=== PATIENT | male | born 1940 | race Caucasian/White ===

== ENCOUNTER 2020-10-19 07:48 | Emergency (ER) | payer OTHER, MEDICARE, SELFPAY ==
--- NOTE | ~2020-10-19 | US_ITS ---
EXAMINATION: US PELVIS LIMITED (BLADDER) CLINICAL INFORMATION: Check suprapubic catheter balloon is inflated.. COMPARISON: CT of February 28, 2019 TECHNIQUE: Real-time imaging of the bladder. FINDINGS: BLADDER: The suprapubic catheter retention balloon is not inflated. US/US bladder IMPRESSION: Suprapubic urinary bladder catheter balloon not inflated..
[2020-10-19 07:56] VITALS: BP 132/59; BP 152/75; PULSE 62; PULSE 64; RESP 18; TEMP 36.9; O2SAT 95; BMI 31.1
--- NOTE | 2020-10-19 08:28 | PC.NURSE ---
PT'S BRIEF SATURATED IN URINE. MD ATTEMPT TO REMOVE CATHETER, BALLOON WILL NOT DEFLATE. UNABLE TO FLUSH CATHETER.
--- NOTE | 2020-10-19 09:19 | ED.GENADULT ---
HPI - General Adult General Chief complaint: General Medical Stated complaint: KAHN BLOCKED PER SNF Time Seen by Provider: 10/19/20 08:40 Source: EMS Mode of arrival: EMS Limitations: other (Patient is very hard of hearing) History of Present Illness HPI narrative: 80-year-old male sent in from his senior living facility for evaluation malfunctioning suprapubic catheter. The report from the paramedics was that the Kahn catheter was not working, staff was unable to flush the catheter. Unknown when the Kahn catheter was last changed or placed. ED nursing staff was unable to flush the catheter. I attempted to drain the balloon in order to change the suprapubic catheter however I was unable to get any fluid out of the balloon. I cut the valve off the Kahn catheter and no fluid was expressed from the tube. The catheter easily slides in and out however there does appear to be in inflated balloon since I am unable to pull it out despite having cut off the valve. Related Data Allergies Allergy/AdvReac Type Severity Reaction Status Date / Time No Known Allergies Allergy Unverified 05/22/20 16:27 [No Known Allergies*] Review of Systems Review of Systems: Yes Other (Unable to obtain secondary to the patient's difficulty with hearing) PMFSH Past Medical History Medical History Achalasia of cardia Aspiration into airway Chronic GERD Cochlear implant status Cystitis Dysphagia Failure to thrive Multiple sclerosis Neuromuscular dysfunction of bladder Paraplegia Suprapubic catheter Social History Social History Advance Directives: Yes Advance Directives on File: Yes Advance Directives Date on File: 10/19/20 Physical Exam Vital Signs: Vital Signs: Last Vital Signs Temp 98.5 F 10/19/20 07:56 Pulse 64 10/19/20 07:56 Resp 18 10/19/20 07:56 BP 132/59 L 10/19/20 07:56 Pulse Ox 95 10/19/20 07:56 Body Mass Index 31.1 Const: General: cooperative and no acute distress HENMT: Head: Yes normal to inspection GI: Inspection: Yes normal to inspection and No distended Palpation (GI): Soft to palpation, nontender, no guarding and Other GI palpation findings present (Super pubic catheter in place, unable to remove despite cutting the valve) Psych: Appearance: grossly normal Course Course Course Narrative: The patient has a nonfunctioning suprapubic Kahn catheter. I was unable to drain fluid out of the balloon and despite cutting the valve, the balloon appears to still be inflated. I did discuss this with the covering urologist, Dr. Beck Mg. He recommended obtaining an ultrasound to see if the balloon is still inflated and if it is not inflated to numb the patient's stoma up with lidocaine tried to use some forced to remove the catheter. If the balloon is inflated, he will come to the emergency department and to deflate the balloon and change the Kahn catheter. 1034: I did discuss patient's presentation with the urologist, he recommended getting an ultrasound to make sure that the balloon was still inflated. Ultrasound did not see a balloon suggesting that was deflated, urology recommended that given the patient infiltrating the stoma site with lidocaine and trying to remove the suprapubic catheter. This was done and I was able to remove the catheter and easily reinserted a 12 Jamaican Kahn with a 5 cc balloon. Patient is draining urine from this new suprapubic catheter therefore he will be discharged back to his facility. Procedures Procedure Narrative Procedure Narrative: Suprapubic catheter change: The suprapubic catheter stoma was cleaned with Betadine, I injected 1% lidocaine with epinephrine around the stoma, approximately 10 mL was used. Using gentle pressure I was able to dislodge the suprapubic catheter and replace it with a 12 Jamaican. The balloon was inflated with 5 cc of fluid. There was good drainage from the Kahn catheter. Discharge Plan Discharge Clinical Impression: Blocked suprapubic catheter Patient Disposition: Home, Self-Care Additional Instructions: Your suprapubic catheter was not working. I changed the catheter in the emergency department and replaced it with a 12 Jamaican Kahn catheter with a 5 cc balloon. Follow-up with your doctor in 2 days. Please return to the emergency department if your symptoms get worse or if you develop any symptoms that are concerning to you.
[2020-10-19] MEDS: Lidocaine HCl 1%/Epi 1:100,000 20 ML VIAL INFILTRATI (09:58)
[2020-10-19 11:16] VITALS: BP 129/60; PULSE 63; RESP 16; O2SAT 95
--- NOTE | 2020-10-19 11:21 | PC.NURSE ---
CALL TO [facility], NO ANSWER.
[2020-10-19 11:31] LABS: Glucose Urine UA NEG (NEG); Leukocyte Esterase Urine 3+ (NEG); Nitrite Urine POS (NEG); PH 8.5 (5.0-8.0); Specific Gravity - Urine 1.015 (1.005-1.025); UACC Culture Trigger YES; Urine Blood 2+ (NEG); Urine Ketones NEG (NEG)
[2020-10-19 11:33] LABS: Appearance Urine CLOUDY; Color Urine YELLOW; Urine Protein 2+ MG/DL (NEG-TRACE)
[2020-10-19 11:39] LABS: Amorphous Sediment Urine 2+ /LPF; Bacteria Urine 3+ /LPF; Squamous Epithelial Cell Urine TRACE /LPF
== END 2020-10-19 13:20 | disposition home or self-care (01) ==
PROVIDERS: Emergency Provider Emergency Medicine Emergency Medical Services; PCP Family Medicine
DX: T83.098A Other mechanical complication of other urinary catheter, initial encounter (principal); N99.528 Other complication of incontinent external stoma of urinary tract; Y73.8 Miscellaneous gastroenterology and urology devices associated with adverse incidents, not elsewhere classified; Y92.9 Unspecified place or not applicable; Z79.899 Other long term (current) drug therapy
CPT/HCPCS: 51102; 76857; 81001; 81003; 87086; 87088; 87186; 99284

== ENCOUNTER 2020-11-01 10:18 | Emergency (ER) | payer OTHER, MEDICARE, SELFPAY ==
[2020-11-01 10:30] VITALS: BP 136/63; BP 138/70; PULSE 70; PULSE 74; RESP 19; TEMP 36.6; O2SAT 96; O2SAT 97; BMI 33.4
--- NOTE | 2020-11-01 11:44 | ED.MALEGU ---
HPI - Male Genitourinary General Chief complaint: Urogenital-Male Stated complaint: F/C ISSUE FROM SNF Time Seen by Provider: 11/01/20 11:00 Source: EMS Mode of arrival: EMS History of Present Illness HPI Narrative: 80-year-old male With a past medical history of achalasia,, Fadi GERD, cochlear implants, cystitis, dysphagia, failure to thrive, MS, neuromuscular dysfunction of the bladder, suprapubic catheter, paraplegia, urinary retention, BIBA from SNF for noted decreased urine output this morning from suprapubic catheter with inability to remove cath this morning to check for blockage. Patient was seen and treated in the ED on 10/19/2020 for similar symptoms and had Babb catheter changed in the ED. Related Data Previous Rx's Medication Instructions Recorded cefuroxime axetil 250 mg PO BID 7 Days #14 tab 11/01/20 Allergies Allergy/AdvReac Type Severity Reaction Status Date / Time No Known Allergies Allergy Verified 11/01/20 10:34 [No Known Allergies*] Review of Systems Review of Systems: Gastrointestinal: No Nausea, No Vomiting, No Abdominal pain Genitourinary: +blocked catheter History limited due to patients difficulty hearing PMFSH Past Medical History Attestation statement: The following information was validated with the patient. Medical History (Updated 11/01/20 @ 12:46 by ARLENE Liang) Achalasia of cardia Aspiration into airway Chronic GERD Cochlear implant status Cystitis Dysphagia Failure to thrive Multiple sclerosis Neuromuscular dysfunction of bladder Paraplegia Suprapubic catheter Urine retention Social History Social History Advance Directives: Yes Advance Directives on File: Yes Advance Directives Date on File: 10/19/20 Physical Exam Vital Signs: Vital Signs: Last Vital Signs Temp 97.6 F 11/01/20 12:57 Pulse 62 11/01/20 12:57 Resp 18 11/01/20 12:57 BP 137/67 11/01/20 12:57 Pulse Ox 97 11/01/20 12:57 Body Mass Index 33.4 Const: General: cooperative, healthy appearing, comfortable and no acute distress Limitations: no limitations HENMT: Head: Yes normal to inspection Ears: hearing grossly normal bilaterally General nose exam: Normal external nose present Face and sinus: Yes normal facial exam Eyes: General: appearance normal, both eyes and all related structures EOM: EOMs intact bilaterally Neck: Neck: Yes normal visual inspection and Yes no meningeal signs Resp: Effort & Inspection: normal respiratory effort GI: Other: Suprapubic catheter in place. Balloon deflated and removed. New 14 Japanese Babb catheter replaced and balloon inflated with 5 cc of fluid. Good drainage obtained from Babb catheter Inspection: Yes normal to inspection Palpation (GI): Soft to palpation, nontender, no guarding and not rigid Skin: Rashes: no rashes Neuro: General: no meningeal signs Extrem: General: Yes normal to inspection Psych: Appearance: grossly normal and well kempt Course Course Course Narrative: -UA chronically infected, will treat based on prior culture results MDM - Male Genitourinary MDM Narrative Medical decision making narrative: 80-year-old male With a past medical history of achalasia,, Fadi GERD, cochlear implants, cystitis, dysphagia, failure to thrive, MS, neuromuscular dysfunction of the bladder, suprapubic catheter, paraplegia, urinary retention, BIBA from SNF for decreased UOP from suprapubic catheter noted this morning. On exam VSS, NAD/well-appearing, physical exam as above. Suprpapubic catheter replaced w/ Japanese Babb with good urine return. Plan: Suprapubic catheter replaced, send urine sample from clean catheter Urine culture from 10/19 grew Proteus Mirabilis > will DC with Ceftin which is sensitive Medical Records Attestation: I reviewed the patient's medical records. Lab Data Attestation: I reviewed the patient's lab results. Labs: Lab Results 11/01/20 Range/Units 12:47 Urine Color YELLOW Urine Appearance CLOUDY Urine pH 8.0 (5.0-8.0) Ur Specific [place] 1.020 (1.005-1.025) Urine Protein 2+ H (NEG-TRACE) MG/DL Urine Glucose (UA) NEG (NEG) MG/DL Urine Ketones NEG (NEG) MG/DL Urine Blood 2+ H (NEG) Urine Nitrite POS H (NEG) Ur Leukocyte Esterase 3+ H (NEG) Urine RBC 15-29 H (0) /HPF Urine WBC TNTC H (0-4) /HPF Ur Squamous Epith Cells NONE /LPF Urine Bacteria 2+ /LPF Discharge Plan Discharge Clinical Impression: Blocked suprapubic catheter, Acute UTI Patient Disposition: [facility] Instructions: Catheter-associated Urinary Tract Infection (ED) Additional Instructions: your catheter was replaced today in the ED You were noted to have urinary tract infection, Ceftin is antibiotic, take as prescribed Follow-up your urologist If your Babb becomes clogged, is not draining, have blood, you have abdominal pain, nausea, vomiting or fever return to the ED Prescriptions: New cefuroxime axetil 250 mg tablet 250 mg PO BID 7 Days Qty: 14 RF: 0 Referrals: Physician,Unknown [Primary Care Provider] - 2 days Gibson Henry MD [Physician] - 2 days
[2020-11-01 12:56] LABS: Glucose Urine UA NEG (NEG); Leukocyte Esterase Urine 3+ (NEG); Nitrite Urine POS (NEG); UACC Culture Trigger YES; Urine Blood 2+ (NEG); Urine Ketones NEG (NEG); Urine Protein 2+ MG/DL (NEG-TRACE)
--- NOTE | 2020-11-01 12:56 | PC.NURSE ---
new suprapubic cath has been inserted by providers. cloudy urine with sediment only 5-ml present in thakkar bag. pt states he has no complaints at this time but is hungry. this rn to bring food. pt awaits ua results.
[2020-11-01 12:57] VITALS: BP 137/67; PULSE 62; RESP 18; TEMP 36.4; O2SAT 97
[2020-11-01 12:59] LABS: Appearance Urine CLOUDY; Color Urine YELLOW
[2020-11-01 13:08] LABS: Bacteria Urine 2+ /LPF; WBC Urine TNTC /HPF (0-4)
[2020-11-01 15:30] VITALS: BP 168/69; PULSE 70; RESP 16; TEMP 36.4; O2SAT 99
--- NOTE | 2020-11-01 15:50 | PC.NURSE ---
rn to rn hilario oliver at [facility].
== END 2020-11-01 16:15 | disposition skilled nursing facility (03) ==
PROVIDERS: Physician Assistant; Emergency Provider Emergency Medicine Emergency Medical Services
DX: T83.098A Other mechanical complication of other urinary catheter, initial encounter (principal); T83.511A Infection and inflammatory reaction due to indwelling urethral catheter, initial encounter
CPT/HCPCS: 51702; 81001; 81003; 87086; 87088; 87186; 99284

== ENCOUNTER → 2020-11-06 08:08 | Outpatient (BNVA) | payer MEDICARE, SELFPAY | PROVIDERS: Visit Provider Internal Medicine Endocrinology, Diabetes & Metabolism | DX: E11.65 Type 2 diabetes mellitus with hyperglycemia (principal); E11.42 Type 2 diabetes mellitus with diabetic polyneuropathy; E11.21 Type 2 diabetes mellitus with diabetic nephropathy; B35.3 Tinea pedis | CPT/HCPCS: 82947; 99202 ==

== ENCOUNTER 2021-01-01 19:46 | Emergency (ER) | payer OTHER, MEDICARE, SELFPAY ==
[2021-01-01 20:10] VITALS: BP 148/70; BP 175/76; PULSE 66; PULSE 78; RESP 16; TEMP 36.8; O2SAT 96; O2SAT 97; BMI 26.3
--- NOTE | 2021-01-01 20:14 | PC.NURSE ---
ARRIVES FROM [facility], [place]. SUPRAPUBIC TUBING NOT IN PLACE UPON ARRIVAL. INSERTION SITE DOES NOT APPEAR INFECTED
[2021-01-01 22:20] LABS: Glucose Urine UA NEG (NEG); Leukocyte Esterase Urine 1+ (NEG); Nitrite Urine POS (NEG); PH 7.5 (5.0-8.0); UACC Culture Trigger YES; Urine Blood 2+ (NEG); Urine Ketones NEG (NEG); Urine Protein NEG (NEG-TRACE)
--- NOTE | 2021-01-01 22:22 | ED.GENADULT ---
HPI - General Adult General Chief complaint: General Medical Stated complaint: G TUB PROBLEMS Time Seen by Provider: 01/01/21 22:05 Source: RN notes reviewed Mode of arrival: EMS Limitations: other (CVA) History of Present Illness HPI narrative: [facility] suprapubic catheter dislodgement which he had for last 2 years, no fever no chills no abdominal pain Related Data Home Medications Medication Instructions Recorded Confirmed acetaminophen 500 mg tablet 200 mg PO Q6H PRN tab 11/06/20 11/06/20 amlodipine 5 mg tablet 5 mg PO DAILY 11/06/20 11/06/20 aspirin 81 mg tablet,delayed 81 mg PO DAILY 11/06/20 11/06/20 release atorvastatin 40 mg tablet 40 mg PO BEDTIME 11/06/20 11/06/20 cholecalciferol (vitamin D3) 25 25 mcg PO DAILY 11/06/20 11/06/20 mcg (1,000 unit) capsule docusate sodium 100 mg capsule 100 mg PO DAILY 11/06/20 11/06/20 fluticasone propionate 50 1 spray INTRANASAL BID 11/06/20 11/06/20 mcg/actuation nasal spray,suspension galantamine 8 mg tablet 8 mg PO BID 11/06/20 11/06/20 insulin detemir U-100 100 unit/mL 20 unit SUBCUT BEDTIME 11/06/20 11/06/20 (3 mL) subcutaneous pen insulin lispro 100 unit/mL See Rx Instructions SUBCUT 11/06/20 11/06/20 subcutaneous solution USEASDIRECTD lactulose 10 gram/15 mL oral 10 g PO DAILY 11/06/20 11/06/20 solution memantine 10 mg tablet 10 mg PO BID 11/06/20 11/06/20 multivitamin 1 tab PO DAILY 11/06/20 11/06/20 omeprazole 20 mg capsule,delayed 20 mg PO DAILY 11/06/20 11/06/20 release timolol maleate 0.5 % eye drops 1 drp OPHTHALMIC (EYE) DAILY 11/06/20 11/06/20 trazodone 50 mg tablet 50 mg PO BEDTIME PRN 11/06/20 11/06/20 Previous Rx's Medication Instructions Recorded cefuroxime axetil 250 mg PO BID 7 Days #14 tab 11/01/20 clotrimazole 1 % topical cream 1 appl TOPICAL BID 14 Days #45 g 11/06/20 cefuroxime axetil 500 mg PO BID 10 Days #20 tab 01/01/21 Allergies Allergy/AdvReac Type Severity Reaction Status Date / Time No Known Allergies Allergy Verified 01/01/21 20:14 [No Known Allergies*] Review of Systems Review of Systems: Yes Unobtainable due to mental condition PMFSH Past Medical History Medical History Achalasia of cardia Aspiration into airway Chronic GERD Cochlear implant status Cystitis Diabetes type 2, uncontrolled Diabetic nephropathy associated with type 2 diabetes mellitus Diabetic polyneuropathy associated with type 2 diabetes mellitus Dysphagia Failure to thrive Multiple sclerosis Neuromuscular dysfunction of bladder Paraplegia Suprapubic catheter Tinea pedis of both feet Urine retention Social History Social History Alcohol intake: never Advance Directives: Yes Advance Directives on File: Yes Advance Directives Date on File: 10/19/20 Physical Exam Vital Signs: Vital Signs: Last Vital Signs Temp 98.2 F 01/01/21 20:10 Pulse 66 01/01/21 20:10 Resp 16 01/01/21 20:10 BP 175/76 H 01/01/21 20:10 Pulse Ox 96 01/01/21 20:10 Body Mass Index 26.3 Appearance: Alert. Oriented X3. No acute distress. Expressive aphasia Eyes: PERRLA, No Nystagmus ENT: Pharynx normal. Oral Mucosa moist Neck: Normal inspection. Neck supple. CVS: Normal heart rate and rhythm. Pulses normal. Respiratory: No respiratory distress. Equal air entry bilateral, no wheezing/rales/rhonchi Abdomen: Soft and nontender. Bowel sounds are present, no mass palpable, suprapubic opening present Skin: Skin warm and dry. Normal skin color. Normal skin turgor. Extremities: No lower extremity edema. No calf tenderness Neuro: Alert and awake Residual motor deficit. No sensory deficit.No cerebellar signs , cranial nerves II-XII intact expressive aphasia Medical Decision Making MDM Narrative Medical decision making narrative: Tried to place a suprapubic catheter using coude catheter 16 Botswanan unable to pass through the opening. Babb catheter was placed through the penis. Case discussed with the urologist Dr. Henry will see the patient as outpatient next week in office Also patient urine showed wbc's which is chronic but with nitrite positive and LES +ve will prescribe him Ceftin Lab Data Lab results reviewed: Yes I reviewed the patient's lab results. Labs: Lab Results 01/01/21 Range/Units 22:13 Urine Color YELLOW Urine Appearance CLEAR Urine pH 7.5 (5.0-8.0) Ur Specific [place] 1.020 (1.005-1.025) Urine Protein NEG (NEG-TRACE) MG/DL Urine Glucose (UA) NEG (NEG) MG/DL Urine Ketones NEG (NEG) MG/DL Urine Blood 2+ H (NEG) Urine Nitrite POS H (NEG) Ur Leukocyte Esterase 1+ H (NEG) Urine RBC 15-29 H (0) /HPF Urine WBC 50-75 H (0-4) /HPF Urine WBC Clumps NOTED Ur Squamous Epith Cells TRACE /LPF Urine Bacteria 2+ /LPF Discharge Plan Discharge Clinical Impression: Babb catheter in place UTI (urinary tract infection) due to urinary indwelling catheter Qualifiers: Indwelling urinary catheter type: indwelling urethral catheter Encounter type: initial encounter Qualified Code(s): T83.511A - Infection and inflammatory reaction due to indwelling urethral catheter, initial encounter Patient Disposition: Xfer [facility] Instructions: Babb Catheter Placement and Care (ED), Urinary Tract Infection in Older Adults (ED) Additional Instructions: Local care of Babb catheter as advised. See urologist next week in the office for suprapubic catheter placement Prescriptions: New cefuroxime axetil 500 mg tablet 500 mg PO BID 10 Days Qty: 20 RF: 0 No Action cefuroxime axetil 250 mg tablet 250 mg PO BID 7 Days Qty: 14 RF: 0 insulin lispro [Humalog U-100 Insulin] 100 unit/mL solution See Rx Instructions subcut USEASDIRECTD RF: 0 Levemir FlexTouch U-100 Insuln 100 unit/mL (3 mL) insulin pen 20 unit subcut BEDTIME RF: 0 acetaminophen [Tylenol Extra Strength] 500 mg tablet 200 mg PO Q6H PRNRF: 0 aspirin [Adult Low Dose Aspirin] 81 mg tablet,delayed release (DR/EC) 81 mg PO DAILY RF: 0 atorvastatin 40 mg tablet 40 mg PO BEDTIME RF: 0 docusate sodium 100 mg capsule 100 mg PO DAILY RF: 0 multivitamin Tablet 1 tab PO DAILY RF: 0 lactulose [Enulose] 10 gram/15 mL solution 10 g PO DAILY RF: 0 fluticasone propionate [Allergy Relief (fluticasone)] 50 mcg/actuation spray,suspension 1 spray intranasal BID RF: 0 galantamine 8 mg tablet 8 mg PO BID RF: 0 memantine 10 mg tablet 10 mg PO BID RF: 0 omeprazole 20 mg capsule,delayed release(DR/EC) 20 mg PO DAILY RF: 0 timolol maleate 0.5 % drops 1 drp ophthalmic (eye) DAILY RF: 0 trazodone 50 mg tablet 50 mg PO BEDTIME PRNRF: 0 cholecalciferol (vitamin D3) 25 mcg (1,000 unit) capsule 25 mcg PO DAILY RF: 0 amlodipine 5 mg tablet 5 mg PO DAILY RF: 0 clotrimazole 1 % cream 1 appl topical BID 14 Days Qty: 45 RF: 1 Referrals: Gibson Henry MD [Physician] - 1 week
[2021-01-01 22:27] LABS: Appearance Urine CLEAR; Color Urine YELLOW
[2021-01-01 22:34] LABS: Bacteria Urine 2+ /LPF; Squamous Epithelial Cell Urine TRACE /LPF; WBC Clumps Urine NOTED; WBC Urine 50-75 /HPF (0-4)
== END 2021-01-01 23:06 ==
PROVIDERS: Emergency Provider Internal Medicine; PCP Family Medicine
DX: N39.0 Urinary tract infection, site not specified (principal); Z79.899 Other long term (current) drug therapy; Z79.82 Long term (current) use of aspirin
CPT/HCPCS: 81001; 81003; 87086; 87088; 87186; 99284